=== PATIENT | female | born 1955 | race Caucasian/White ===

== ENCOUNTER 2018-08-01 10:28 | Emergency (ER) | payer MEDICARE ==
--- NOTE | 2018-08-01 12:04 | ED ---
Lower Extremity - HPI Summary HPI Summary: Pt is a 62 y/o female who presents to the ED c/o RLE wound. She states she first noticed the wound on her right calf 5 days ago (07/27/18), and the wound was fresh, red, and swollen as per manager msw Audelia. The wound was not painful at this time, but pt began to have 8/10 pain yesterday. As per manager msw, this morning there was some drainage. Pt states the wound couldve broke open from rubbing her leg against something or using harsh soap. Caretakers at the [facility] in [place] have been dressing the wound, but it has not been healing. This is the first doctor visit for this wound. Pt denies any fever. She has a hx of non-healing wounds and edema. Pt is wheelchair-bound due to her cerebral palsy, but she can bear weight on her right leg and she can pivot and transfer. She usually wears compression socks on both LE but has not been wearing them in order to let the wound "breathe". No history MRSA. Vital signs while in room: HR 73 bpm, BP 105/83. Home Medications Medication Instructions Recorded Confirmed Type Acetaminophen [Tylenol] 650 mg PO Q6H PRN 08/01/18 08/01/18 History Bacitracin OINTMENT* 1 applic TOPICAL BID PRN 08/01/18 08/01/18 History Chlorpheniramine/Dextromethorp 2 tab PO DAILY PRN 08/01/18 08/01/18 History [Coricidin Hbp Cough & Col] Hydrochlorothiazide TAB* 25 mg PO DAILY 08/01/18 08/01/18 History [Hydrodiuril TAB*] Ketoconazole 120 ml TRANSDERM DAILY PRN 08/01/18 08/01/18 History Lisinopril TAB* [Prinivil TAB*] 20 mg PO DAILY 08/01/18 08/01/18 History Magnesium Hydroxide LIQ* [Milk of 30 ml PO DAILY PRN 08/01/18 08/01/18 History Magnesia LIQ*] Nystatin [Nyamyc] 30 gm TOPICAL DAILY PRN 08/01/18 08/01/18 History Simvastatin [Zocor] 40 mg PO DAILY 08/01/18 08/01/18 History - History of Current Complaint Chief Complaint: EDSoftTissueLowExtr Stated Complaint: RIGHT LEG WOUND Time Seen by Provider: 08/01/18 10:55 Hx Obtained From: Patient, Family/Java Lead - Audelia manager msw Mechanism Of Injury: Unknown, Other - possible rubbing on sheet Onset of Pain: Days - 1 Onset/Duration: Still Present - 5 Severity Initially: Moderate Severity Currently: Severe Pain Intensity: 8 Pain Scale Used: 0-10 Numeric Timing: Constant Location: Is Discrete @ - Right medial mid-calf Character Of Pain: Sharp Associated Signs And Symptoms: Positive: Swelling, Redness. Negative: Fever Aggravating Factor(s): Nothing Alleviating Factor(s): Other - Dry dressing Able to Bear Weight: Yes Related History: Other - Edema, non-healing wounds - Allergies/Home Medications Allergies/Adverse Reactions: Allergies Allergy/AdvReac Type Severity Reaction Status Date / Time cephalexin [From Keflex] Allergy Hives Verified 08/01/18 10:38 Penicillins Allergy Hives Verified 08/01/18 10:38 Sulfa (Sulfonamide Allergy Hives Verified 08/01/18 10:38 Antibiotics) Home Medications: Home Medications Acetaminophen [Tylenol] 650 mg PO Q6H PRN 08/01/18 [History Confirmed 08/01/18] Bacitracin OINTMENT* 1 applic TOPICAL BID PRN 08/01/18 [History Confirmed ] Chlorpheniramine/Dextromethorp [Coricidin Hbp Cough & Col] 2 tab PO DAILY PRN [History Confirmed 08/01/18] Hydrochlorothiazide TAB* [Hydrodiuril TAB*] 25 mg PO DAILY 08/01/18 [History Confirmed 08/01/18] Ketoconazole 120 ml TRANSDERM DAILY PRN 08/01/18 [History Confirmed 08/01/18] Lisinopril TAB* [Prinivil TAB*] 20 mg PO DAILY 08/01/18 [History Confirmed 08/01] Magnesium Hydroxide LIQ* [Milk of Magnesia LIQ*] 30 ml PO DAILY PRN 08/01/18 [ History Confirmed 08/01/18] Nystatin [Nyamyc] 30 gm TOPICAL DAILY PRN 08/01/18 [History Confirmed 08/01/18] Simvastatin [Zocor] 40 mg PO DAILY 08/01/18 [History Confirmed 08/01/18] PMH/Surg Hx/FS Hx/Imm Hx Previously Healthy: No Endocrine/Hematology History: Reports: Other Endocrine/Hematological Disorders - Non-healing wounds Cardiovascular History: Reports: Hx Hypercholesterolemia, Hx Hypertension, Other Cardiovascular Problems/Disorders - LE edema Neurological History: Reports: Other Neuro Impairments/Disorders - Cerebral palsy Psychiatric History: Reports: Hx Anxiety - Surgical History Surgery Procedure, Year, and Place: Tendon releases on Achilles, cholecystectomy , tonsillectomy Infectious Disease History: No Infectious Disease History: Denies: Hx of Known/Suspected MRSA, Traveled Outside the [place] in Last 30 Days - Family History Known Family History: Positive: Hypertension, Diabetes - Mother, Other - Gout - Social History Occupation: Disabled Lives: Assisted Living - [employer] Alcohol Use: None Hx Substance Use: No Substance Use Type: Reports: None Hx Tobacco Use: No Smoking Status (MU): Never Smoked Tobacco Review of Systems Negative: Fever Cardiovascular: Negative Respiratory: Negative Gastrointestinal: Negative Positive: Other - RLE wound with erythema and pain Neurological: Negative Psychological: Normal All Other Systems Reviewed And Are Negative: Yes Physical Exam - Summary Physical Exam Summary: Appearance: Chronically ill-appearing, moderate pain distress, well-nourished Skin: Warm, dry, 2.8 x 2.5 cm non-tunneling circular wound on the right medial mid-calf. Black eschar noted around periphery of wound. Non-indurated. Surrounding erythema that extends 33 x 14 cm. Hirsutism. Head: Hirsutism. Eyes: Conjunctiva clear ENT: Normal inspection Neck: Supple, no nodes, no JVD Respiratory: Lungs clear, normal breath sounds, no respiratory distress Cardio: RRR, No murmur, pulses normal, brisk capillary refill Abdomen: Soft, nontender Bowel sounds: Present Musculoskeletal: Strength Intact/ROM intact, right calf tenderness at site of wound, wound as above, bilat pedal edema, right greater than left , doralis pedis pulse right leg 2+ Psychological: Conversant, able to express needs and talk about past events Neuro: Alert, no new focal deficit Triage Information Reviewed: Yes Vital Signs On Initial Exam: Initial Vitals Temp Pulse Resp BP Pulse Ox 98.6 F 83 16 130/78 97 08/01/18 10:30 08/01/18 10:30 08/01/18 10:30 08/01/18 10:30 08/01/18 10:30 Vital Signs Reviewed: Yes Diagnostics - Vital Signs Vital Signs Temp Pulse Resp BP Pulse Ox 08/01/18 10:30 98.6 F 83 16 130/78 97 - Laboratory Result Diagrams: 08/01/18 12:47 08/01/18 12:47 Lab Statement: Any lab studies that have been ordered have been reviewed, and results considered in the medical decision making process. - Ultrasound No standard instances Ultrasound Interpretation Completed By: Radiologist - Venous Doppler US: 1. LIMITED EVALUATION WITH INCOMPLETE VISUALIZATION OF THE POPLITEAL VEIN AND CALF VEINS. 2. THE REMAINDER OF THE VENOUS SYSTEM OF THE RIGHT LOWER EXTREMITY IS PATENT. 3. RIGHT INGUINAL LYMPHADENOPATHY. ED physician reviewed radiology report. Re-Evaluation - Re-Evaluation First Eval Re-Evaluation Time: 14:30 Change: Improved Comment: pain is controlled. Pt is advised regarding lab and US results. Pt and manager msw choose [facility] [place] care. Lower Extremity Course/Dx - Course Course Of Treatment: Pt is a 62 y/o female who presents to the ED for first evaluation of RLE wound. At 12:28 spoke with nurse Ludwig at the wound clinic. She suggested using Santyl ointment on the wound. Pt will be seen in clinic of . A venous doppler US revealed LIMITED EVALUATION WITH INCOMPLETE VISUALIZATION OF THE POPLITEAL VEIN AND CALF VEINS. THE REMAINDER OF THE VENOUS SYSTEM OF THE RIGHT LOWER EXTREMITY IS PATENT. RIGHT INGUINAL LYMPHADENOPATHY. Pt is discharged with manager msw Audelia. Wound bandaged with Telfa gauze prior to discharge. Compression stocking not reapplied. Wound culture sent. Pt with no hx MRSA. - Diagnoses Differential Diagnosis/HQI/PQRI: Positive: Cellulitis, Infection, Other - leg wound Provider Diagnoses: Wound of right leg, Cerebral palsy Discharge - Sign-Out/Discharge Documenting (check all that apply): Patient Departure - Discharge - Discharge Plan Condition: Stable Disposition: HOME Patient Education Materials: Acute Wound Care (ED) Referrals: [facility]IAN REFERRAL [Outside] - 2 Days Additional Instructions: F/U with your doctor in [place]. Dr. Constantino has made an appointment at the wound clinic with Dr. Claire Betts on 08/06/18 8 AM. This is the wound clinic at [facility]. Follow-up phone number to confirm this appointment is [phone]. The ultrasound he had today did not show a DVT. Your lab work did not indicate infection. The wound was dressed with Telfa gauze. The wound clinic recommends that you use Santyl ointment 2 cm (nickel-sized) daily with Telfa gauze. A wound culture was taken, and is pending at time of discharge. Patient may attend day hab. Resume previous medication orders. Return to the emergency department if any new or worsening symptoms. - Billing Disposition and Condition Condition: STABLE Disposition: Home - Attestation Statements Document Initiated by David: Yes Documenting Scribe: Preeti Farley Provider For Whom David is Documenting (Include Credential): Angela Constantino MD Scribe Attestation: Preeti Saldana, scribed for Angela Constantino MD on 08/01/18 at 1925. Scribe Documentation Reviewed: Yes Provider Attestation: The documentation as recorded by the Preeti munguia accurately reflects the service I personally performed and the decisions made by me, Angela Constantino MD
--- NOTE | 2018-08-01 12:42 | RAD ---
HISTORY: swelling, redness, leg ulcer COMPARISONS: None relevant TECHNIQUE: Multiple transverse and longitudinal ultrasound images were obtained of the right lower extremity from the level of the common femoral vein inferiorly through to the infrapopliteal veins using grayscale, color Doppler, and spectral Doppler imaging with and without compression and with augmentation. Comparison images were obtained of the contralateral common femoral vein. FINDINGS: VEINS: Evaluation is limited secondary to patient inability to move legs. The technologist was unable to visualized the right popliteal vein or the calf veins. Within the remainder of the right lower extremity, there is no thrombosis.. SOFT TISSUES: Unremarkable. OTHER FINDINGS: There are right inguinal lymph nodes measuring up to 1.2 cm in short axis. IMPRESSION: 1. LIMITED EVALUATION WITH INCOMPLETE VISUALIZATION OF THE POPLITEAL VEIN AND CALF VEINS. 2. THE REMAINDER OF THE VENOUS SYSTEM OF THE RIGHT LOWER EXTREMITY IS PATENT. 3. RIGHT INGUINAL LYMPHADENOPATHY.
[2018-08-01 13:07] LABS: INR 0.97 (0.77-1.02)
[2018-08-01 13:09] LABS: Hematocrit 39 % (35-47); Hemoglobin 13.1 g/dl (12.0-16.0); Mean Corpuscular HGB Conc 34 g/dl (31-36); Mean Corpuscular Hemoglobin 29 pg (27-31); Mean Corpuscular Volume 85 fL (80-97); Mean Platelet Volume 7.6 um3 (7.4-10.4); Platelet Count 315 10^3/ul (150-450); Red Blood Count 4.57 10^6/ul (4.00-5.40); Red Cell Distribution Width 13 % (10.5-15); White Blood Count 6.4 10^3/ul (3.5-10.8)
[2018-08-01 13:28] LABS: EGFR Non-African American 113.7 (>60)
[2018-08-01 13:43] LABS: ABS Basophils 0 10^3/ul (0-0.2); ABS Eosinophils 0.1 10^3/ul (0-0.6); ABS Monocytes 0.6 10^3/ul (0-0.8); ABS Neutrophils 4.6 10^3/ul (1.5-7.7); ABS Nucleated RBC 0 10^3/ul; Eosinophil % 1.6 % (0-6); Lymphocyte % 16.3 % (25-47); Nucleated Red Blood Cells % 0.1
[2018-08-01 15:03] VITALS: BP 100/80
== END 2018-08-01 15:03 | disposition home or self-care (01) ==
LOC: ED 10:28
DX: S81.811A Laceration without foreign body, right lower leg, initial encounter (principal); G80.9 Cerebral palsy, unspecified; I10 Essential (primary) hypertension; Z88.0 Allergy status to penicillin; X58.XXXA Exposure to other specified factors, initial encounter; Y92.9 Unspecified place or not applicable
CPT/HCPCS: 36415; 80053; 83605; 85025; 85610; 85652; 86140; 87070; 87077; 87186; 87205; 87640; 87641; 99283